=== PATIENT | female | born 1940 | race Caucasian/White ===

== ENCOUNTER 2025-10-15 08:52 | Day surgery (SDC) | payer MEDICARE ==
[2025-10-08 11:36] VITALS: BMI 29.5
[2025-10-15] MEDS ORDERED: Lidocaine 1% PF 5 ML VIAL ONE (10:37)
[2025-10-15] MEDS ORDERED: PROPOFOL 20 ML ONE (10:37)
[2025-10-15] MEDS ORDERED: Ondansetron PF 4 MG/2 ML Vial ONE (10:37)
[2025-10-15] MEDS ORDERED: CEFAZOLIN 1 GM VIAL ONE (10:51)
[2025-10-15] MEDS ORDERED: Ferric Subsulfate 8 ML TOPICAL SOLN ONE (11:04)
[2025-10-15] MEDS ORDERED: PHENYLEPHRINE-NS 100 MCG/ML 10 ML SYRINGE ONE (11:28)
== END 2025-10-15 13:30 | disposition home or self-care (01) ==
LOC: CSHSDC 08:52
PROVIDERS: ATTEND Obstetrics & Gynecology
PROC: 0UDB8ZZ Extraction of Endometrium, Via Natural or Artificial Opening Endoscopic (ICD-10-PCS; principal; 2025-10-15)
DX: N84.1 Polyp of cervix uteri (principal); E11.9 Type 2 diabetes mellitus without complications; I10 Essential (primary) hypertension; Z87.891 Personal history of nicotine dependence; Z88.5 Allergy status to narcotic agent; Z88.8 Allergy status to other drugs, medicaments and biological substances
CPT/HCPCS: 58558; J0690; J1100; J2405; J2704; J3010; 88305